=== PATIENT | female | born 1960 | race African-American/Black ===

== ENCOUNTER 2016-09-26 19:36 | Emergency (ER) | payer MEDICAID ==
[~2016-09-26] VITALS: Ht 167.6 cm; Wt 100.0 kg
[~2016-09-26 19:36] MED LIST: AMLO10TA80 PO; ASPI-1035; FURO-152 PO; GABA-531; LEVVL SUBCUT; LISI40TA4 PO; Metoprolol Tartrate PO; PULM50 HHN; QUET50TA11 PO; SITA1TAB8 PO
[2016-09-26 21:26] LABS: CLARITY URINE CLOUDY (CLEAR); COLOR URINE YELLOW (YELLOW); GLUCOSE URINE 1+ (NEGATIVE); KETONES URINE NEGATIVE (NEGATIVE); LEUKOCYTE ESTERASE URINE NEGATIVE (NEGATIVE); NITRITE URINE NEGATIVE (NEGATIVE); OCCULT BLOOD URINE NEGATIVE (NEGATIVE); PROTEIN URINE NEGATIVE (NEGATIVE); SPECIFIC GRAVITY URINE 1.023 (1.005-1.030); UROBILINOGEN URINE 0.2 E.U./dL (0.2-1.0)
[2016-09-26] MEDS ORDERED: HYDROCODONE/ACETAMINOPHEN 5/325MG TABLET PO ONE (21:30)
[2016-09-26] MEDS ORDERED: PHENAZOPYRIDINE HCL 200MG TABLET PO ONE (21:30)
[2016-09-26 22:05] LABS: BACTERIA URINE 1+; RBC URINE NONE SEEN /hpf (0-2); SQUAMOUS EPITHELIAL CELL URINE 1+ /lpf (RARE/1+); WBC URINE 0-2 /hpf (0-2)
[2016-09-26 22:11] VITALS: BP 165/92
== END 2016-09-26 22:26 | disposition home or self-care (01) ==
LOC: ER 19:50
DX: N39.0 Urinary tract infection, site not specified (principal); M54.5 Low back pain; G89.29 Other chronic pain; E11.9 Type 2 diabetes mellitus without complications; Z90.49 Acquired absence of other specified parts of digestive tract; Z98.890 Other specified postprocedural states; Z79.82 Long term (current) use of aspirin; Z79.4 Long term (current) use of insulin
CPT/HCPCS: 81001; 81025; 99283

== ENCOUNTER 2016-12-01 02:32 | Emergency (ER) | payer MEDICAID ==
[~2016-12-01] VITALS: Ht 170.2 cm; Wt 118.0 kg
[~2016-12-01 02:32] MED LIST changes: -ASPI-1035; +ASPI-1158
[2016-12-01 07:47] VITALS: BP 141/70
== END 2016-12-01 09:12 | disposition home or self-care (01) ==
LOC: ER 09:06
DX: M79.675 Pain in left toe(s) (principal); M79.674 Pain in right toe(s); E11.9 Type 2 diabetes mellitus without complications; Z79.4 Long term (current) use of insulin; Z79.82 Long term (current) use of aspirin; Z90.49 Acquired absence of other specified parts of digestive tract
CPT/HCPCS: 99283; Z7610

== ENCOUNTER 2017-01-31 10:00 | Emergency (ER) | payer MEDICAID, OTHER ==
[~2017-01-31] VITALS: Ht 167.6 cm; Wt 119.0 kg
[2017-01-31] MEDS ORDERED: IBUPROFEN 800MG TABLET PO ONE (10:45)
[2017-01-31 10:52] VITALS: BP 169/74
== END 2017-01-31 12:37 | disposition home or self-care (01) ==
LOC: ER 10:44
DX: S63.91XA Sprain of unspecified part of right wrist and hand, initial encounter (principal); E11.9 Type 2 diabetes mellitus without complications; Z91.018 Allergy to other foods; Z79.82 Long term (current) use of aspirin; Z79.4 Long term (current) use of insulin; X50.0XXA Overexertion from strenuous movement or load, initial encounter; Y93.89 Activity, other specified; Y92.89 Other specified places as the place of occurrence of the external cause; Y99.8 Other external cause status
CPT/HCPCS: 29125; 73130; 99284

== ENCOUNTER → 2017-09-16 | Outpatient (CLI) | payer MEDICARE, MEDICAID ==
[~2017-09-16] MED LIST changes: +QUET50TA PO; -QUET50TA11 PO
== END | disposition home or self-care (01) ==
LOC: RAD 13:37
PROVIDERS: ATTEND Neurological Surgery
DX: M43.16 Spondylolisthesis, lumbar region (principal); Z98.1 Arthrodesis status
CPT/HCPCS: 72114

== ENCOUNTER 2017-11-30 09:26 | Emergency (ER) | payer MEDICARE, MEDICAID ==
[~2017-11-30] VITALS: Ht 167.6 cm; Wt 112.0 kg
[2017-11-30] MEDS ORDERED: KETOROLAC 60MG/2ML VIAL IM ONE (10:15)
[2017-11-30 10:43] VITALS: BP 149/84
== END 2017-11-30 11:49 | disposition home or self-care (01) ==
LOC: ER 11:01
DX: S80.02XA Contusion of left knee, initial encounter (principal); M25.532 Pain in left wrist; I10 Essential (primary) hypertension; E11.9 Type 2 diabetes mellitus without complications; Z79.4 Long term (current) use of insulin; Z90.49 Acquired absence of other specified parts of digestive tract; W17.89XA Other fall from one level to another, initial encounter; Y93.89 Activity, other specified; Y92.810 Car as the place of occurrence of the external cause
CPT/HCPCS: 29125; 29505; 73080; 73110; 73130; 73562; 73590; 96372; 99284; J1885

== ENCOUNTER 2017-12-04 06:07 | Emergency (ER) | payer MEDICARE, MEDICAID ==
[~2017-12-04] VITALS: Ht 167.6 cm; Wt 110.0 kg
[2017-12-04 06:12] VITALS: BP 165/75
== END 2017-12-04 11:07 | disposition home or self-care (01) ==
LOC: ER 08:13
DX: S83.91XA Sprain of unspecified site of right knee, initial encounter (principal); V48.4XXA Person boarding or alighting a car injured in noncollision transport accident, initial encounter; Y93.89 Activity, other specified; Y92.410 Unspecified street and highway as the place of occurrence of the external cause; R03.0 Elevated blood-pressure reading, without diagnosis of hypertension; Z79.899 Other long term (current) drug therapy
CPT/HCPCS: 73560; 99284

== ENCOUNTER 2017-12-26 12:31 | Emergency (ER) | payer MEDICARE, MEDICAID ==
[~2017-12-26] VITALS: Ht 172.7 cm; Wt 102.0 kg
[2017-12-26] MEDS ORDERED: KETOROLAC 60MG/2ML VIAL IM ONE (15:00)
[2017-12-26] MEDS ORDERED: METHOCARBAMOL 500MG TABLET PO ONE (15:45)
[2017-12-26] MEDS ORDERED: IBUPROFEN 600MG TABLET PO ONE (15:45)
[2017-12-26 15:47] VITALS: BP 124/72
== END 2017-12-26 15:50 | disposition home or self-care (01) ==
LOC: ER 12:46
DX: S76.011A Strain of muscle, fascia and tendon of right hip, initial encounter (principal); E11.9 Type 2 diabetes mellitus without complications; X58.XXXA Exposure to other specified factors, initial encounter; Y93.89 Activity, other specified; Y92.89 Other specified places as the place of occurrence of the external cause; Y99.8 Other external cause status
CPT/HCPCS: 72170; 99283; 99284

== ENCOUNTER → 2017-12-26 | Outpatient (CLI) | payer MEDICARE, MEDICAID | END | disposition home or self-care (01) | LOC: RAD 11:22 | PROVIDERS: ATTEND Neurological Surgery | DX: M51.37 Other intervertebral disc degeneration, lumbosacral region (principal) | CPT/HCPCS: 72114 ==

== ENCOUNTER 2018-02-06 13:51 | Emergency (ER) | payer MEDICARE, MEDICAID ==
[~2018-02-06] VITALS: Ht 167.6 cm; Wt 112.0 kg
[2018-02-06] MEDS ORDERED: ACETAMINOPHEN 325MG TABLET PO ONE (17:00)
[2018-02-06 17:39] VITALS: BP 122/90
== END 2018-02-06 17:40 | disposition home or self-care (01) ==
LOC: ER 14:20
DX: M79.606 Pain in leg, unspecified (principal); E11.9 Type 2 diabetes mellitus without complications; Z76.0 Encounter for issue of repeat prescription
CPT/HCPCS: 99283

== ENCOUNTER 2019-03-14 02:41 | Emergency (ER) | payer MEDICARE, MEDICAID ==
[~2019-03-14] VITALS: Ht 165.1 cm; Wt 105.0 kg
[2019-03-14] MEDS ORDERED: IBUPROFEN 800MG TABLET PO ONE (06:00)
[2019-03-14 06:14] VITALS: BP 135/79
== END 2019-03-14 06:24 | disposition home or self-care (01) ==
LOC: ER 02:41
DX: S63.602A Unspecified sprain of left thumb, initial encounter (principal); S80.01XA Contusion of right knee, initial encounter; L02.212 Cutaneous abscess of back [any part, except buttock and flank]; E11.9 Type 2 diabetes mellitus without complications; Z90.49 Acquired absence of other specified parts of digestive tract; Z79.82 Long term (current) use of aspirin; Z79.4 Long term (current) use of insulin; Z79.899 Other long term (current) drug therapy; X58.XXXA Exposure to other specified factors, initial encounter; Y93.89 Activity, other specified; Y92.89 Other specified places as the place of occurrence of the external cause; Y99.8 Other external cause status
CPT/HCPCS: 73140; 73562; 99283

== ENCOUNTER 2019-12-15 06:13 | Emergency (ER) | payer MEDICARE, MEDICAID ==
[~2019-12-15] VITALS: Ht 167.6 cm; Wt 110.0 kg
[2019-12-15 07:10] VITALS: BP 139/77
== END 2019-12-15 07:11 | disposition home or self-care (01) ==
LOC: ER 06:33
DX: Z48.00 Encounter for change or removal of nonsurgical wound dressing (principal)
CPT/HCPCS: 99281

== ENCOUNTER 2019-12-17 11:44 | Emergency (ER) | payer MEDICARE, MEDICAID ==
[~2019-12-17] VITALS: Ht 167.6 cm; Wt 110.0 kg
[2019-12-17] MEDS ORDERED: BACITRACIN ZINC OINT UDPKT TOP ONE (13:15)
[2019-12-17] MEDS ORDERED: SODIUM CHLORIDE 0.9% 500 ML IV ONE (13:40)
[2019-12-17] MEDS ORDERED: HYDROCODONE/ACETAMINOPHEN 5/325MG TABLET PO ONE (13:45)
[2019-12-17 14:24] VITALS: BP 139/78
== END 2019-12-17 14:34 | disposition home or self-care (01) ==
LOC: ER 11:44
DX: L97.529 Non-pressure chronic ulcer of other part of left foot with unspecified severity (principal); I10 Essential (primary) hypertension; E11.9 Type 2 diabetes mellitus without complications; Z48.00 Encounter for change or removal of nonsurgical wound dressing; Z79.899 Other long term (current) drug therapy; Z79.82 Long term (current) use of aspirin; Z98.890 Other specified postprocedural states; Z90.49 Acquired absence of other specified parts of digestive tract; Z91.018 Allergy to other foods
CPT/HCPCS: 99283; J7030

== ENCOUNTER → 2020-01-19 | Outpatient (CLI) | payer MEDICARE, MEDICAID | END | disposition home or self-care (01) | LOC: RAD 10:45 | PROVIDERS: ATTEND Podiatrist Foot & Ankle Surgery | DX: M19.072 Primary osteoarthritis, left ankle and foot (principal) | CPT/HCPCS: 73630 ==

== ENCOUNTER 2020-08-15 04:39 | Emergency (ER) | payer MEDICARE, MEDICAID ==
[~2020-08-15] VITALS: Ht 167.6 cm; Wt 100.0 kg
[~2020-08-15 04:39] MED LIST changes: -ASPI-1158; +ASPI-1406 PO; -GABA-531; +GABA-532; +LISI40TA13 PO; -LISI40TA4 PO
[2020-08-15 04:43] VITALS: BP 146/69
[2020-08-15] MEDS ORDERED: ACETAMINOPHEN 325MG TABLET PO ONE (05:15)
[2020-08-15] MEDS ORDERED: T3 PO (06:36)
[2020-08-15] MEDS ORDERED: IBUP-2028 MT (06:37)
[2020-10-25] MEDS ORDERED: GABA-533 PO (12:20)
[2020-10-25] MEDS ORDERED: GLIP5TAB12 PO (12:24)
[2020-10-25] MEDS ORDERED: ACET-2708 PO (12:24)
[2020-10-25] MEDS ORDERED: CELE100C PO (12:24)
== END 2020-08-15 07:28 | disposition home or self-care (01) ==
LOC: ER 04:39 → MERGE 04:39 → ER 07:28
DX: M79.642 Pain in left hand (principal); M79.641 Pain in right hand; M25.532 Pain in left wrist; E11.9 Type 2 diabetes mellitus without complications; I10 Essential (primary) hypertension; Z88.0 Allergy status to penicillin; Z79.899 Other long term (current) drug therapy; Z98.890 Other specified postprocedural states; W18.39XA Other fall on same level, initial encounter; Y93.89 Activity, other specified; Y92.89 Other specified places as the place of occurrence of the external cause; Y99.8 Other external cause status
CPT/HCPCS: 29125; 73110; 73130; 99284

== ENCOUNTER 2020-10-23 10:12 | Emergency (ER) | payer MEDICARE, MEDICAID ==
[~2020-10-23 10:12] MED LIST changes: -ASPI-1406; +ASPI-1406 PO; +IBUP-2028 MT; +T3 PO
[2020-10-23] MEDS ORDERED: ACET-2708 MT (13:26)
[2020-10-25] MEDS ORDERED: GABA-533 PO (12:20)
[2020-10-25] MEDS ORDERED: CELE100C PO (12:24)
[2020-10-25] MEDS ORDERED: GLIP5TAB12 PO (12:24)
[2020-10-25] MEDS ORDERED: ACET-2708 PO (12:24)
== END 2020-10-23 11:21 | disposition left against medical advice (07) ==
LOC: ER 10:12 → MERGE 10:12 → ER 11:21
DX: Z53.21 Procedure and treatment not carried out due to patient leaving prior to being seen by health care provider (principal)

== ENCOUNTER 2020-10-23 11:34 | Emergency (ER) | payer MEDICARE, MEDICAID ==
[~2020-10-23] VITALS: Ht 167.6 cm; Wt 93.0 kg
[2020-10-23] MEDS ORDERED: IBUPROFEN 600MG TABLET PO ONE (12:00)
[2020-10-23] MEDS ORDERED: ACETAMINOPHEN 325MG TABLET PO ONE (13:00)
[2020-10-23] MEDS ORDERED: ACET-2708 MT (13:26)
[2020-10-23 13:40] VITALS: BP 125/81
[2020-10-25] MEDS ORDERED: GABA-533 PO (12:20)
[2020-10-25] MEDS ORDERED: ACET-2708 PO (12:24)
[2020-10-25] MEDS ORDERED: CELE100C PO (12:24)
[2020-10-25] MEDS ORDERED: GLIP5TAB12 PO (12:24)
== END 2020-10-23 13:40 | disposition home or self-care (01) ==
LOC: MERGE 11:34 → ER 11:34
DX: G89.21 Chronic pain due to trauma (principal); M25.532 Pain in left wrist; I10 Essential (primary) hypertension; E11.9 Type 2 diabetes mellitus without complications; Z91.81 History of falling
CPT/HCPCS: 29125; 73110; 73130; 99284

== ENCOUNTER → 2020-10-23 | Outpatient (CLI) | payer MEDICARE, MEDICAID ==
[~2020-10-23] MED LIST changes: +ASPI-1406; -ASPI-1406 PO
== END | disposition home or self-care (01) ==
LOC: LAB 09:25
PROVIDERS: ATTEND Podiatrist Foot & Ankle Surgery
DX: Z01.812 Encounter for preprocedural laboratory examination (principal); Z20.822 Contact with and (suspected) exposure to COVID-19
CPT/HCPCS: 87426

== ENCOUNTER → 2020-10-25 | Day surgery (SDC) | payer MEDICARE, MEDICAID ==
[~2020-10-25] VITALS: Ht 167.6 cm; Wt 100.2 kg
[~2020-10-25] MED LIST changes: +ACET-2708 MT; +ACET-2708 PO; +BACITRACIN 15GM TUBE TOP ONE; +BUPIVACAINE HCL/PF 0.5% (5MG/ML) 10ML ONE; +CEFAZOLIN SODIUM 1000MG/VIAL ONE; +CELE100C PO; +FENTANYL CITRATE/PF 50MCG/ML 2ML VIAL ONE; +GABA-533 PO; +GENTAMICIN SULF 40MG/ML 2ML VIAL ONE; +GLIP5TAB12 PO; +HYDROMORPHONE HCL/PF 2MG/ML CPJ IV PRN; +LIDOCAINE HCL 1% 20ML VIAL (Pyxis) INJ ONE; +MEPERIDINE HCL/PF 25MG/ML CPJ IV PRN; +MIDAZOLAM HCL 2 MG/2 ML VIAL ONE; +MORPHINE SULFATE 2 MG/ML CPJ (NOT FOR IM USE) IV PRN; +ONDANSETRON HCL 4MG/2ML INJ IV PRN; +PIPERACILLIN SODIUM/TAZOBACTAM 4.5 G in DEXT 5% WATER 100 ML IV SCH; +POLYMYXIN B SULFATE 500000 UNITS/VIAL ONE; +SODIUM CHLORIDE 0.9% 1,000 ML IV ONE; +SODIUM CHLORIDE 0.9% 1,000 ML IV SCH; +VANCOMYCIN HCL 1 GM/VIAL ONE
[2020-10-25 06:56] LABS: CHLORIDE 100 mEq/L (98-107)
[2020-10-25 06:57] LABS: CLARITY URINE CLOUDY (CLEAR); COLOR URINE YELLOW (YELLOW); KETONES URINE TRACE (NEGATIVE); LEUKOCYTE ESTERASE URINE NEGATIVE (NEGATIVE); NITRITE URINE NEGATIVE (NEGATIVE); OCCULT BLOOD URINE NEGATIVE (NEGATIVE); PROTEIN URINE NEGATIVE (NEGATIVE); UROBILINOGEN URINE 0.2 E.U./dL (0.2-1.0)
[2020-10-25 07:05] LABS: BASOPHILS % 0.6 % (0.0-2.0); EOSINOPHILS % 2.4 % (0.0-5.0); HEMATOCRIT. 36.1 % (36.0-48.0); LYMPHOCYTES % 26.1 % (20.0-50.0); MEAN CORPUSCULAR HEMOGLOBIN 30.2 pg (28.0-32.0); MEAN CORPUSCULAR VOLUME 90.7 fL (81.0-99.0); MEAN PLATELET VOLUME 7.6 fl (7.4-10.4); MONOCYTES % 6.3 % (2.0-8.0); NEUTROPHILS % 64.6 % (40.0-76.0); PARTIAL THROMBOPLASTIN TIME 24.7 sec (23.4-31.0); PLATELET 275 x1000/uL (130-400); PROTHROMBIN TIME 10.6 sec (9.6-11.0); RED BLOOD CELL COUNT 3.98 mill/uL (4.2-5.4); RED CELL DISTRIBUTION WIDTH 14.6 % (11.6-14.6)
== END | disposition home or self-care (01) ==
LOC: OR 10-16 13:04
PROVIDERS: ATTEND Podiatrist Foot & Ankle Surgery
DX: M20.42 Other hammer toe(s) (acquired), left foot (principal); L97.529 Non-pressure chronic ulcer of other part of left foot with unspecified severity; I10 Essential (primary) hypertension; E11.9 Type 2 diabetes mellitus without complications; G47.30 Sleep apnea, unspecified; E66.9 Obesity, unspecified; Z79.899 Other long term (current) drug therapy; Z98.890 Other specified postprocedural states; Z79.82 Long term (current) use of aspirin; Z82.49 Family history of ischemic heart disease and other diseases of the circulatory system
CPT/HCPCS: 28285; 36415; 73630; 73660; 80048; 81003; 82962; 85025; 85610; 85730; 88305; 88311; 93005; 97161; J0690; J2250; J3010; J3490; 76000; J1580; J3370

== ENCOUNTER → 2021-04-11 | Outpatient (CLI) | payer MEDICARE, MEDICAID ==
[~2021-04-11] MED LIST changes: -AMLO10TA80 PO; -BACITRACIN 15GM TUBE TOP ONE; -BUPIVACAINE HCL/PF 0.5% (5MG/ML) 10ML ONE; -CEFAZOLIN SODIUM 1000MG/VIAL ONE; -FENTANYL CITRATE/PF 50MCG/ML 2ML VIAL ONE; -FURO-152 PO; -GABA-532; -GENTAMICIN SULF 40MG/ML 2ML VIAL ONE; -HYDROMORPHONE HCL/PF 2MG/ML CPJ IV PRN; -LEVVL SUBCUT; -LIDOCAINE HCL 1% 20ML VIAL (Pyxis) INJ ONE; -MEPERIDINE HCL/PF 25MG/ML CPJ IV PRN; -MIDAZOLAM HCL 2 MG/2 ML VIAL ONE; -MORPHINE SULFATE 2 MG/ML CPJ (NOT FOR IM USE) IV PRN; -Metoprolol Tartrate PO; -ONDANSETRON HCL 4MG/2ML INJ IV PRN; -PIPERACILLIN SODIUM/TAZOBACTAM 4.5 G in DEXT 5% WATER 100 ML IV SCH; -POLYMYXIN B SULFATE 500000 UNITS/VIAL ONE; -PULM50 HHN; -QUET50TA PO; -SODIUM CHLORIDE 0.9% 1,000 ML IV ONE; -SODIUM CHLORIDE 0.9% 1,000 ML IV SCH; -VANCOMYCIN HCL 1 GM/VIAL ONE
== END | disposition home or self-care (01) ==
LOC: RAD 10:22
PROVIDERS: ATTEND Podiatrist Foot & Ankle Surgery
DX: M79.675 Pain in left toe(s) (principal)
CPT/HCPCS: 73660

== ENCOUNTER 2021-05-21 19:32 | Emergency (ER) | payer MEDICARE, MEDICAID ==
[~2021-05-21] VITALS: Ht 167.6 cm; Wt 108.0 kg
[2021-05-21] MEDS ORDERED: IBUPROFEN 600MG TABLET PO ONE (21:45)
[2021-05-21 22:31] VITALS: BP 129/75
[2021-05-21] MEDS ORDERED: IBUP-2028 MT (22:50)
[2021-05-21] MEDS ORDERED: HYDR-4001 MT (22:50)
== END 2021-05-21 22:35 | disposition home or self-care (01) ==
LOC: ER 19:32
DX: S82.492A Other fracture of shaft of left fibula, initial encounter for closed fracture (principal); M54.59 Other low back pain; V49.49XA Driver injured in collision with other motor vehicles in traffic accident, initial encounter; Y93.89 Activity, other specified; Y92.488 Other paved roadways as the place of occurrence of the external cause
CPT/HCPCS: 29505; 72100; 73560; 99284

== ENCOUNTER 2021-05-26 02:16 | Emergency (ER) | payer MEDICARE, MEDICAID ==
[~2021-05-26] VITALS: Ht 167.6 cm; Wt 106.0 kg
[~2021-05-26 02:16] MED LIST changes: +HYDR-4001 MT
[2021-05-26] MEDS ORDERED: ACETAMINOPHEN 325MG TABLET PO ONE (02:45)
[2021-05-26] MEDS ORDERED: TOPUD MT (03:21)
[2021-05-26 03:59] VITALS: BP 135/82
== END 2021-05-26 04:01 | disposition home or self-care (01) ==
LOC: ER 02:16
DX: M25.512 Pain in left shoulder (principal); M25.561 Pain in right knee; R00.0 Tachycardia, unspecified; E11.9 Type 2 diabetes mellitus without complications; Z87.81 Personal history of (healed) traumatic fracture; Z90.49 Acquired absence of other specified parts of digestive tract; Z79.82 Long term (current) use of aspirin
CPT/HCPCS: 73562; 99283

== ENCOUNTER 2021-11-09 13:47 | Emergency (ER) | payer MEDICARE, MEDICAID ==
[~2021-11-09] VITALS: Ht 167.6 cm; Wt 105.0 kg
[~2021-11-09 13:47] MED LIST changes: +TOPUD MT
[2021-11-09] MEDS ORDERED: ONDANSETRON 4MG ODT PO ONE (14:30)
[2021-11-09] MEDS ORDERED: HYDROCODONE/ACETAMINOPHEN 5/325MG TABLET PO ONE (14:30)
[2021-11-09] MEDS ORDERED: METH-773 MT (16:03)
[2021-11-09] MEDS ORDERED: IBUP-2030 MT (16:03)
[2021-11-09 16:35] VITALS: BP 157/92
== END 2021-11-09 18:35 | disposition home or self-care (01) ==
LOC: ER 14:00
DX: M54.50 Low back pain, unspecified (principal); M79.642 Pain in left hand; M79.641 Pain in right hand; S09.90XA Unspecified injury of head, initial encounter; Z91.018 Allergy to other foods; W17.89XA Other fall from one level to another, initial encounter; Y93.89 Activity, other specified; Y92.89 Other specified places as the place of occurrence of the external cause; Y99.8 Other external cause status
CPT/HCPCS: 29125; 70450; 72070; 72125; 72131; 73110; 73130; 73502; 99284; Q0162

== ENCOUNTER 2022-03-16 23:43 | Emergency (ER) | payer MEDICARE, MEDICAID ==
[~2022-03-16] VITALS: Ht 167.6 cm; Wt 120.0 kg
[~2022-03-16 23:43] MED LIST changes: +IBUP-2030 MT; +METH-773 MT
[2022-03-17] VITALS: BP 117/77
== END 2022-03-17 05:29 | disposition left against medical advice (07) ==
LOC: ER 23:43
DX: Z53.21 Procedure and treatment not carried out due to patient leaving prior to being seen by health care provider (principal)

== ENCOUNTER 2022-03-19 23:57 | Emergency (ER) | payer MEDICARE, MEDICAID ==
[~2022-03-19] VITALS: Ht 167.6 cm; Wt 97.5 kg
[2022-03-20 00:12] VITALS: BP 134/77
[2022-03-20] MEDS ORDERED: ACET-2708 PO (16:14)
[2022-03-20] MEDS ORDERED: CYCL5TAB PO (16:14)
== END 2022-03-20 05:31 | disposition left against medical advice (07) ==
LOC: ER 23:57
DX: Z53.21 Procedure and treatment not carried out due to patient leaving prior to being seen by health care provider (principal)

== ENCOUNTER 2022-03-20 13:00 | Emergency (ER) | payer MEDICARE, MEDICAID ==
[~2022-03-20] VITALS: Ht 167.6 cm; Wt 91.0 kg
[2022-03-20 13:12] VITALS: BP 141/90
[2022-03-20] MEDS ORDERED: IBUPROFEN 600MG TABLET PO STA (14:29)
[2022-03-20] MEDS ORDERED: ACET-2708 PO (16:14)
[2022-03-20] MEDS ORDERED: CYCL5TAB PO (16:14)
== END 2022-03-20 17:10 | disposition home or self-care (01) ==
LOC: ER 13:00
DX: S90.02XA Contusion of left ankle, initial encounter (principal); M25.532 Pain in left wrist; M25.561 Pain in right knee; E11.9 Type 2 diabetes mellitus without complications; I10 Essential (primary) hypertension; Z98.1 Arthrodesis status; Z79.82 Long term (current) use of aspirin; Z91.018 Allergy to other foods; V43.52XA Car driver injured in collision with other type car in traffic accident, initial encounter; Y93.89 Activity, other specified; Y92.481 Parking lot as the place of occurrence of the external cause
CPT/HCPCS: 73110; 73562; 73610; 73630; 99284

== ENCOUNTER 2022-07-28 02:09 | Emergency (ER) | payer MEDICARE, MEDICAID ==
[~2022-07-28] VITALS: Ht 167.6 cm; Wt 91.0 kg
[~2022-07-28 02:09] MED LIST changes: +CYCL5TAB PO
[2022-07-28 05:15] VITALS: BP 126/80
== END 2022-07-28 05:18 | disposition home or self-care (01) ==
LOC: ER 02:09
DX: M54.2 Cervicalgia (principal); M79.601 Pain in right arm; E11.9 Type 2 diabetes mellitus without complications; I10 Essential (primary) hypertension; Z79.899 Other long term (current) drug therapy; Y08.89XA Assault by other specified means, initial encounter; Y93.89 Activity, other specified; Y92.89 Other specified places as the place of occurrence of the external cause; Y99.8 Other external cause status
CPT/HCPCS: 93005; 99283

== ENCOUNTER 2022-08-10 09:56 | Emergency (ER) | payer MEDICARE, MEDICAID ==
[~2022-08-10] VITALS: Ht 167.6 cm; Wt 102.8 kg
[2022-08-10 10:00] VITALS: BP 142/90
[2022-08-10] MEDS ORDERED: HEPARIN 25,000 UNITS PREMIX 250 ML IV PRN (11:00)
[2022-08-10] MEDS ORDERED: HEPARIN 5000 UNITS/ML VIAL IV SCH (11:00)
[2022-08-10 11:26] LABS: BASOPHILS % 0.8 % (0.0-2.0); EOSINOPHILS % 1.1 % (0.0-5.0); HEMATOCRIT. 39.9 % (36.0-48.0); HEMOGLOBIN. 13.5 g/dL (12.0-16.0); LYMPHOCYTES % 12.2 % (20.0-50.0); MEAN CORPUSCULAR HEMOGLOBIN 30.8 pg (28.0-32.0); MEAN CORPUSCULAR VOLUME 90.6 fL (81.0-99.0); NEUTROPHILS % 81.9 % (40.0-76.0); PLATELET 257 x1000/uL (130-400); RED CELL DISTRIBUTION WIDTH 15.1 % (11.6-14.6)
[2022-08-10 11:40] LABS: CHLORIDE 102 mEq/L (98-107)
[2022-08-10] MEDS ORDERED: MORPHINE SULFATE 4 MG/ML CPJ (NOT FOR IM USE) IV ONE (12:45)
[2022-08-10] MEDS ORDERED: HEPARIN 80 UNITS/KG BOLUS IV SCH (13:00)
[2022-08-10] MEDS ORDERED: HEPARIN BOLUS PRN aPTT 37-44 IV (18:00)
[2022-08-10] MEDS ORDERED: HEPARIN BOLUS PRN aPTT <36 IV (18:00)
== END 2022-08-10 13:08 | disposition left against medical advice (07) ==
LOC: ER 09:56 → EDBEDREQ 12:55 → EDBEDREQSVC 12:55 → EDBEDREQTM 12:55 → CANBEDREQ 12:58 → ER 13:08
DX: I82.621 Acute embolism and thrombosis of deep veins of right upper extremity (principal); E11.22 Type 2 diabetes mellitus with diabetic chronic kidney disease; I12.9 Hypertensive chronic kidney disease with stage 1 through stage 4 chronic kidney disease, or unspecified chronic kidney disease; N18.9 Chronic kidney disease, unspecified; Z79.01 Long term (current) use of anticoagulants; Z79.82 Long term (current) use of aspirin; Z91.018 Allergy to other foods
CPT/HCPCS: 36415; 80053; 85025; 93971; 99284

== ENCOUNTER 2022-11-28 22:07 | Emergency (ER) | payer MEDICARE, MEDICAID ==
[~2022-11-28] VITALS: Ht 167.6 cm; Wt 91.0 kg
[2022-11-29] MEDS ORDERED: ACETAMINOPHEN 325MG TABLET PO ONE (01:45)
[2022-11-29 03:14] LABS: BASOPHILS % 0.7 % (0.0-2.0); EOSINOPHILS % 1.3 % (0.0-5.0); HEMATOCRIT. 40.1 % (36.0-48.0); HEMOGLOBIN. 13.8 g/dL (12.0-16.0); LYMPHOCYTES % 29.8 % (20.0-50.0); MEAN CORPUSCULAR VOLUME 92.9 fL (81.0-99.0); MEAN PLATELET VOLUME 7.8 fl (7.4-10.4); MONOCYTES % 5.7 % (2.0-8.0); NEUTROPHILS % 62.5 % (40.0-76.0); PLATELET 280 x1000/uL (130-400); RED BLOOD CELL COUNT 4.31 mill/uL (4.2-5.4); RED CELL DISTRIBUTION WIDTH 14.5 % (11.6-14.6)
[2022-11-29 03:20] LABS: CHLORIDE 99 mEq/L (98-107)
[2022-11-29 03:29] LABS: ETHANOL BLOOD < 10 mg/dL (-10)
[2022-11-29] MEDS ORDERED: LIDO700A15 TP (05:48)
[2022-11-29] MEDS ORDERED: ACET-2708 MT (05:48)
[2022-11-29 06:01] VITALS: BP 142/88
== END 2022-11-29 06:03 | disposition home or self-care (01) ==
LOC: ER 22:26
DX: N93.8 Other specified abnormal uterine and vaginal bleeding (principal); M79.10 Myalgia, unspecified site; E11.9 Type 2 diabetes mellitus without complications; I10 Essential (primary) hypertension; Z79.899 Other long term (current) drug therapy
CPT/HCPCS: 71045; 74176; 80053; 80320; 83880; 84484; 85025; 93005; 99285; G0480

== ENCOUNTER 2023-01-05 23:49 | Emergency (ER) | payer MEDICARE, MEDICAID ==
[~2023-01-05 23:49] MED LIST changes: +LIDO700A15 TP
== END 2023-01-06 05:56 | disposition left against medical advice (07) ==
LOC: ER 23:49
DX: Z53.21 Procedure and treatment not carried out due to patient leaving prior to being seen by health care provider (principal)
CPT/HCPCS: 82962

== ENCOUNTER 2025-04-16 12:52 | Inpatient (IN) | payer MEDICARE, MEDICAID ==
[~2025-04-16] VITALS: Ht 170.2 cm; Wt 98.6 kg
[~2025-04-16 12:52] MED LIST changes: +CYCL10TA21 MT; -CYCL5TAB PO; +CYCL5TAB3 PO; -GABA-533 PO; +GABA-534 PO; -GLIP5TAB12 PO; +GLIP5TAB22 PO; +LIDO-53 TP; -LIDO700A15 TP; -LISI40TA13 PO; +LISI40TA21 PO; +NAPR-681 MT
[2025-04-16 12:54] VITALS: O2SAT 97
[2025-04-16] MEDS: MORPHINE SULFATE 4 MG/ML INJ (FOR IV/IM USE) IV ONE (14:00)
[2025-04-16] MEDS: ONDANSETRON HCL 4MG/2ML INJ IV ONE (14:01)
[2025-04-16] MEDS: SODIUM CHLORIDE 0.9% 1,000 ML IV ONE (14:01)
[2025-04-16 14:29] LABS: CLARITY URINE CLEAR (CLEAR); COLOR URINE YELLOW (YELLOW); GLUCOSE URINE 3+ (NEGATIVE); KETONES URINE 1+ (NEGATIVE); LEUKOCYTE ESTERASE URINE NEGATIVE (NEGATIVE); NITRITE URINE NEGATIVE (NEGATIVE); OCCULT BLOOD URINE NEGATIVE (NEGATIVE); PH URINE >=9.0 (4.5-8.0); PROTEIN URINE 1+ (NEGATIVE); SPECIFIC GRAVITY URINE 1.018 (1.005-1.030); UROBILINOGEN URINE 0.2 E.U./dL (0.2-1.0)
[2025-04-16 14:31] LABS: *AMPHETAMINES SCREEN URINE NEGATIVE (NEGATIVE); *BARBITURATES SCREEN URINE NEGATIVE (NEGATIVE); *BENZODIAZEPINES SCREEN URINE NEGATIVE (NEGATIVE); *COCAINE SCREEN URINE NEGATIVE (NEGATIVE); CANNABINOID URINE SCREEN NEGATIVE (NEGATIVE); ECSTASY MDMA SCREEN URINE NEGATIVE (NEGATIVE); METHADONE URINE SCREEN NEGATIVE (NEGATIVE); OPIATES URINE SCREEN NEGATIVE (NEGATIVE); PHENCYCLIDINE URINE SCREEN NEGATIVE (NEGATIVE)
[2025-04-16 14:46] LABS: SQUAMOUS EPITHELIAL CELL URINE 3+ /lpf (RARE/1+)
[2025-04-16 14:47] LABS: BACTERIA URINE TRACE; RBC URINE 0-2 /hpf (0-2); WBC URINE 0-2 /hpf (0-2); YEAST URINE 1+
[2025-04-16 15:30] LABS: BASOPHILS % 0.9 % (0.0-2.0); EOSINOPHILS % 0.4 % (0.0-5.0); HEMATOCRIT. 40.0 % (36.0-48.0); HEMOGLOBIN. 13.5 g/dL (12.0-16.0); LYMPHOCYTES % 12.2 % (20.0-50.0); MEAN PLATELET VOLUME 7.1 fl (7.4-10.4); MONOCYTES % 3.1 % (2.0-8.0); NEUTROPHILS % 83.4 % (40.0-76.0); PLATELET 326 x1000/uL (130-400); RED BLOOD CELL COUNT 4.33 mill/uL (4.2-5.4); RED CELL DISTRIBUTION WIDTH 14.3 % (11.6-14.6)
[2025-04-16 15:50] LABS: UREA NITROGEN BLOOD 8 mg/dL (9-23)
[2025-04-16 15:51] LABS: CREATININE 0.7 mg/dL (0.6-1.0)
[2025-04-16 15:52] LABS: ASPARTATE AMINOTRANSFERASE 19 IU/L (<34)
[2025-04-16 15:53] LABS: BILIRUBIN DIRECT 0.3 mg/dL (<=3.0); BILIRUBIN TOTAL 1.0 mg/dL (0.1-1.0); PROTEIN TOTAL 8.7 g/dL (6.0-8.3)
[2025-04-16 15:55] LABS: TROPONIN I HIGH SENSITIVITY 51 ng/L (3.0-34)
[2025-04-16] MEDS: ASPIRIN 325MG TABLET PO ONE (17:26)
[2025-04-16 18:50] LABS: TROPONIN I HIGH SENSITIVITY 49 ng/L (3.0-34)
[2025-04-16 20:00] VITALS: BP 108/52; PULSE 102; RESP 18; TEMP 36.6; O2SAT 99
[2025-04-16 20:26] VITALS: BP 120/48; PULSE 103; RESP 19; TEMP 36.7516
[2025-04-16] MEDS ORDERED: ACETAMINOPHEN 325MG TABLET PO PRN (21:30)
[2025-04-16] MEDS ORDERED: CEFEPIME 1GM IN DEXT 5% 50ML IV SCH (21:30)
[2025-04-16] MEDS ORDERED: DEXTROSE 50% WATER 50ML SYRINGE IV PRN (21:30)
[2025-04-16] MEDS: ONDANSETRON HCL 4MG/2ML INJ IV PRN (21:58)
[2025-04-16] MEDS ORDERED: INFLUENZA VACCINE 05/PF 0.5 ML SYRINGE IM ONE (22:15)
[2025-04-16] MEDS ORDERED: PNEUMOCOCCAL 20-VAL CONJ-DIP CRM 0.5ML IM ONE (22:15)
[2025-04-16] MEDS: GABAPENTIN 400MG CAPSULE PO SCH (23:26)
[2025-04-16] MEDS: HYDROCODONE/ACETAMINOPHEN 5/325MG TABLET PO PRN (23:28)
[2025-04-16 23:53] LABS: BASOPHILS % 0.3 % (0.0-2.0); EOSINOPHILS % 0.4 % (0.0-5.0); HEMATOCRIT. 36.2 % (36.0-48.0); HEMOGLOBIN. 12.2 g/dL (12.0-16.0); LYMPHOCYTES % 19.4 % (20.0-50.0); MEAN PLATELET VOLUME 7.1 fl (7.4-10.4); MONOCYTES % 5.3 % (2.0-8.0); NEUTROPHILS % 74.6 % (40.0-76.0); PLATELET 320 x1000/uL (130-400); RED BLOOD CELL COUNT 3.93 mill/uL (4.2-5.4); RED CELL DISTRIBUTION WIDTH 14.5 % (11.6-14.6)
[2025-04-17] VITALS (7 sets, daily range): BP systolic 107–129; BP diastolic 52–70; PULSE 85–109; RESP 16–18; TEMP 36.2–36.9; O2SAT 97–99
[2025-04-17 00:32] LABS: CREATININE 0.7 mg/dL (0.6-1.0); UREA NITROGEN BLOOD 8 mg/dL (9-23)
[2025-04-17] MEDS: CEFEPIME 2GM PREMIX 100ML IV SCH (00:42)
[2025-04-17] MEDS: INSULIN LISPRO 100 UNITS/ML SUBCUT SCH ×2 (07:15→12:15)
[2025-04-17] MEDS: LIDOCAINE 5% PATCH TOP SCH (10:11)
[2025-04-17] MEDS: LISINOPRIL 20MG TABLET PO SCH (10:12)
[2025-04-17] MEDS: PANTOPRAZOLE 40MG DR TABLET PO SCH (10:12)
[2025-04-17] MEDS: ASPIRIN 81MG TABLET PO SCH (10:12)
[2025-04-17] MEDS ORDERED: ACETAMINOPHEN 325MG TABLET PO PRN (11:15)
[2025-04-17] MEDS ORDERED: FLUCONAZOLE 200 MG/100ML BAG 100 MG in CONTAINER,EMPTY 0 BAG IV SCH (11:15)
[2025-04-17] MEDS ORDERED: ONDANSETRON HCL 4MG/2ML INJ IV PRN (11:15)
[2025-04-17] MEDS ORDERED: DEXTROSE 50% WATER 50ML SYRINGE IV PRN (11:15)
[2025-04-17] MEDS ORDERED: BLOOD SUGAR DIAGNOSTIC STRIP TEST SCH (11:45)
[2025-04-17] MEDS ORDERED: GABAPENTIN 400MG CAPSULE PO SCH (13:00)
[2025-04-17] MEDS: FLUCONAZOLE 200 MG/100ML BAG 100 ML IV SCH (13:35)
[2025-04-17] MEDS: POTASSIUM CHLORIDE 20MEQ TABLET SR PO NR (14:32)
[2025-04-17 19:22] LABS: BASOPHILS % 1.3 % (0.0-2.0); EOSINOPHILS % 1.7 % (0.0-5.0); HEMATOCRIT. 34.2 % (36.0-48.0); HEMOGLOBIN. 11.4 g/dL (12.0-16.0); LYMPHOCYTES % 31.6 % (20.0-50.0); MEAN PLATELET VOLUME 7.4 fl (7.4-10.4); MONOCYTES % 6.9 % (2.0-8.0); NEUTROPHILS % 58.5 % (40.0-76.0); RED BLOOD CELL COUNT 3.68 mill/uL (4.2-5.4); RED CELL DISTRIBUTION WIDTH 14.6 % (11.6-14.6)
[2025-04-17 19:37] LABS: CREATININE 0.7 mg/dL (0.6-1.0); UREA NITROGEN BLOOD 12 mg/dL (9-23)
[2025-04-17 19:38] LABS: PLATELET 275 x1000/uL (130-400)
[2025-04-17] MEDS: BLOOD SUGAR DIAGNOSTIC STRIP TEST SCH (20:55)
[2025-04-18] VITALS: BP 112/47; PULSE 97; RESP 18; TEMP 36.5; O2SAT 98
[2025-04-18 04:00] VITALS: BP 117/86; PULSE 77; RESP 18; TEMP 36.4; O2SAT 98
[2025-04-18] MEDS: PANTOPRAZOLE 40MG DR TABLET PO SCH (06:57)
[2025-04-18 08:00] VITALS: BP 116/77; PULSE 108; RESP 16; TEMP 36.2; O2SAT 98
[2025-04-18 08:11] LABS: BASOPHILS % 0.6 % (0.0-2.0); EOSINOPHILS % 1.9 % (0.0-5.0); HEMATOCRIT. 35.8 % (36.0-48.0); HEMOGLOBIN. 12.1 g/dL (12.0-16.0); LYMPHOCYTES % 21.0 % (20.0-50.0); MEAN PLATELET VOLUME 7.2 fl (7.4-10.4); MONOCYTES % 5.8 % (2.0-8.0); NEUTROPHILS % 70.7 % (40.0-76.0); PLATELET 298 x1000/uL (130-400); RED BLOOD CELL COUNT 3.84 mill/uL (4.2-5.4); RED CELL DISTRIBUTION WIDTH 14.3 % (11.6-14.6)
[2025-04-18 08:18] LABS: CREATININE 0.7 mg/dL (0.6-1.0)
[2025-04-18 08:20] LABS: UREA NITROGEN BLOOD 11 mg/dL (9-23)
[2025-04-18] MEDS ORDERED: LISINOPRIL 40MG TABLET PO SCH (09:00)
[2025-04-18] MEDS ORDERED: ASPIRIN 81MG EC TABLET PO SCH (09:00)
[2025-04-18] MEDS ORDERED: PANTOPRAZOLE SODIUM 40 MG/VIAL IV SCH (09:00)
[2025-04-18 12:00] VITALS: BP_SYST 124; BP_DIAS 80; BP_DIAS 82; PULSE 100; PULSE 104; RESP 16; TEMP 36.2; TEMP 36.4; O2SAT 100
[2025-04-18 12:28] LABS: TROPONIN I HIGH SENSITIVITY 46 ng/L (3.0-34)
[2025-04-18 12:29] LABS: LDL CHOLESTEROL 49.0 mg/dL (5-100); TRIGLYCERIDE 216.0 mg/dL (0-150)
[2025-04-18 16:00] VITALS: BP 131/82; PULSE 106; RESP 16; TEMP 36.3; O2SAT 99
[2025-04-18 17:08] VITALS: BP 136/86; PULSE 77; RESP 16; TEMP 97.2
== END 2025-04-18 17:19 | disposition home or self-care (01) | DRG 392 ==
LOC: ER 13:05 → 5WST 18:04 → EDBEDREQ 18:06 → EDBEDREQTM 18:06 → ENRESERV 19:11
PROVIDERS: ADMIT Internal Medicine; ATTEND Internal Medicine
DX: K21.9 Gastro-esophageal reflux disease without esophagitis (principal); L97.919 Non-pressure chronic ulcer of unspecified part of right lower leg with unspecified severity; M86.672 Other chronic osteomyelitis, left ankle and foot; K76.0 Fatty (change of) liver, not elsewhere classified; I10 Essential (primary) hypertension; E11.621 Type 2 diabetes mellitus with foot ulcer; L97.929 Non-pressure chronic ulcer of unspecified part of left lower leg with unspecified severity; R10.13 Epigastric pain; K42.9 Umbilical hernia without obstruction or gangrene; E87.6 Hypokalemia; R79.89 Other specified abnormal findings of blood chemistry; E11.69 Type 2 diabetes mellitus with other specified complication; G47.33 Obstructive sleep apnea (adult) (pediatric); Z91.018 Allergy to other foods; Z79.82 Long term (current) use of aspirin; Z79.899 Other long term (current) drug therapy; Z90.49 Acquired absence of other specified parts of digestive tract
CPT/HCPCS: 36415; 71045; 74176; 76705; 80048; 80061; 80076; 80305; 80320; 81003; 82962; 83036; 83735; 84145; 84484; 85025; 93005; 93306; 96361; 96374; 96375; 99291; A4606; J0692; J1450; J1815; J2270; J2405; J7030; G0480